=== PATIENT | female | born 2000 | race Caucasian/White ===

== ENCOUNTER 2021-12-18 11:51 | Emergency (ER) | payer BC, SELFPAY ==
--- NOTE | ~2021-12-18 | XR_ITS ---
XR lumbar spine 2-3V 12/18/2021 12:20 Indication: Low back pain Procedure: 3 views lumbar spine Comparison: No prior studies for comparison. Findings: There is mild levoscoliosis. Vertebral body heights are maintained. No significant disc laura rowing. No evidence for spondylolysis or spondylolisthesis. No acute fracture or traumatic malalignme nt. Impression: 1: No acute abnormality of the lumbar spine. Reviewed, dictated and finalized at location A. Impression: 1: No acute abnormality of the lumbar spine.
[2021-12-18 11:54] VITALS: BP 149/92; PULSE 112; RESP 18; TEMP 36.2; O2SAT 98
--- NOTE | 2021-12-18 12:06 | ED.BACK ---
HPI - Back Pain/Injury General Chief Complaint: Back Pain/Injury Stated Complaint: back pain Time Seen by Provider: 12/18/21 11:57 History of Present Illness HPI Narrative: 21-year-old female presents emergency room with acute on chronic low back pain. States pains been present for years, and is recently exacerbated in the last 1 to 2 weeks. Reports pain radiates into her left leg. Has paresthesias in her left foot. Reports rotating and bending her lower back exacerbates the pain. Has not taking any medications to relieve her symptoms. Denies any saddle anesthesia. Denies injury or trauma. Related Data Allergies Allergy/AdvReac Type Severity Reaction Status Date / Time Sulfa (Sulfonamide Allergy Rash Verified 12/18/21 11:53 Antibiotics) Review of Systems Review of Systems: CONSTITUTIONAL: Denies fever, chills, or sweats. EYES: Denies visual changes, redness, or discharge. ENT: Denies rhinorrhea, congestion, sore throat, or otalgia. CARDIOVASCULAR: Denies chest pain, palpitations, or edema. RESPIRATORY: Denies cough or dyspnea. GASTROINTESTINAL: Denies abdominal pain, nausea, vomiting, or diarrhea. GENITOURINARY: Denies dysuria or hematuria. SKIN: Denies rash or itching. MUSCULOSKELETAL: Reports low back pain NEUROLOGIC: Denies headache, numbness, dizziness, or weakness. PSYCHIATRIC: Denies anxiety or depression. Exam Narrative: GENERAL: Well-appearing, well-nourished, no physical limitations, and in no acute distress. HEAD: Normocephalic, atraumatic. EYES: Conjunctivae normal, PERRLA and EOMI. CHEST: Clear to auscultation. No respiratory distress. No wheezes rales or rhonchi. HEART: Regular rate and rhythm. No murmur heard. Normal peripheral pulses. BACK: No midline lumbar tenderness, step-offs, bony abnormality; pain elicited with bilateral rotation and bilateral lateral bend. -SLR to LLE EXTREMITIES: Normal range of motion. No edema. No clubbing or cyanosis SKIN: Warm, dry, no rash. No noted wounds NEURO: No focal deficits. Alert and oriented x3. MAEW. CN's II-XI intact bilaterally, normal gait PSYCH: Cooperative. Normal mood and affect. Course Vital Signs Vital signs: Vital Signs Temperature 36.2 C L 12/18/21 11:54 Pulse Rate 112 H 10/29/22 11:54 Respiratory Rate 18 12/18/21 11:54 Blood Pressure 149/92 H 12/18/21 11:54 Pulse Oximetry 98 12/18/21 11:54 Temperature 36.2 C L 12/18/21 11:54 Pulse Rate 112 H 12/18/21 11:54 Respiratory Rate 18 12/18/21 11:54 Blood Pressure 149/92 H 12/18/21 11:54 Pulse Oximetry 98 12/18/21 11:54 Discharge Plan Discharge Clinical Impression: Lumbar radiculopathy, Strain of lumbar region, Sciatica Condition: Stable Instructions: Acute Low Back Pain (ED) Prescriptions: New methocarbamol 500 mg tablet 500 mg PO TID Qty: 20 0RF Follow-up/Referrals: PHYSICIAN,[employer] [Primary Care Provider] - Time of Disposition: 12:41
[2021-12-18] MEDS: KETOROLAC (*BKC) 60 MG/2 ML VIAL IM (12:22)
[2021-12-18 13:02] VITALS: BP 141/105; PULSE 96; RESP 20; O2SAT 99
== END 2021-12-18 13:03 | disposition home or self-care (01) ==
PROVIDERS: Emergency Provider Nurse Practitioner Family
DX: M54.16 Radiculopathy, lumbar region (principal); S39.012A Strain of muscle, fascia and tendon of lower back, initial encounter; M54.30 Sciatica, unspecified side; X58.XXXA Exposure to other specified factors, initial encounter
CPT/HCPCS: 72100; 96372; 99283; J1885